=== PATIENT | female | born 1980 | race Caucasian/White ===

== ENCOUNTER 2019-07-07 13:30 | Outpatient (CLI) | payer OTHER, MEDICARE, BC | END 2019-07-07 13:31 | disposition home or self-care (01) | LOC: CTENTCT 13:30 | PROVIDERS: ATTEND Otolaryngology Plastic Surgery within the Head & Neck | DX: J32.8 Other chronic sinusitis (principal) | CPT/HCPCS: 70486 ==

== ENCOUNTER 2019-08-24 13:39 | Outpatient (CLI) | payer OTHER, MEDICARE, BC ==
--- NOTE | 2019-08-24 14:58 | ULT ---
Renal ultrasound: 08/24/2019 COMPARISON:None available HISTORY:Neurogenic bladder TECHNIQUE: Multiplanar grayscale sonographic imaging of the kidneys and urinary bladder obtained. FINDINGS: The right kidney measures9.8 x 6.1 x 5.4 cm and demonstratesno renal mass, hydronephrosis, or renal stone. The left kidney olitusec90.2 x 5.6 x 4.6 cm and demonstratesno hydronephrosis, stone, or mass lesion. The urinary bladderappears grossly unremarkable. IMPRESSION:No acute findings.
== END 2019-08-24 13:40 | disposition home or self-care (01) ==
LOC: BICULT 13:39
PROVIDERS: ATTEND Urology
DX: N31.9 Neuromuscular dysfunction of bladder, unspecified (principal)
CPT/HCPCS: 76770

== ENCOUNTER 2019-10-31 06:19 | Outpatient (CLI) | payer OTHER, MEDICARE, BC ==
[2019-10-31 12:32] LABS: Hemoglobin 13.6 g/dL (12.0-16.0); Mean Corpuscular HGB CONC 32.9 g/dL (32.0-36.0); Mean Corpuscular Hemoglobin 32.7 pg (27.0-31.0); Mean Corpuscular Volume 99.5 fL (78.0-98.0); Mean Platelet Volume 8.8 fL (7.4-10.4); Platelet Count 269 thou/uL (130-400); Red Blood Cell (RBC) Count 4.15 mill/uL (4.20-5.40); White Blood Cell (WBC) Count 9.3 thou/uL (4.8-10.8)
[2019-10-31 12:46] LABS: INR-International Normal Ratio 0.9; PTT 28.8 SEC (22.9-36.1); Prothrombin Time 12.5 sec (12.0-14.7)
[2019-10-31 12:50] LABS: Bacteria/HPF None Seen HPF (None Seen); Bilirubin Negative (Negative); Blood, Urine Negative (Negative); Clarity Clear (Clear); Glucose, Urine (Dipstick) Normal (Negative); Leukocyte Negative Leu/uL (Negative); Nitrite Negative (Negative); Protein, Urine (Dipstick) Negative (Neg-Trace); RBC/HPF 0-3 HPF (0-3); Squamous Epithelial 0-3 HPF (0-3); Urobilinogen Normal mg/dL (Less than 2); WBC/HPF 0-3 HPF (0-3)
[2019-10-31 12:57] LABS: Anion Gap 16 mmol/L (10-20); BUN (Urea Nitrogen) 16 mg/dL (7.0-18.7); Calc. Creatinine Clearance 0 mL/min (70-130); Calcium 9.3 mg/dL (7.8-10.44); Carbon Dioxide 21 mmol/L (22-29); Chloride 104 mmol/L (98-107); Estimated GFR-MDRD 85; Glucose 81 mg/dL (70-105); Potassium 3.9 mmol/L (3.5-5.1); Sodium 137 mmol/L (136-145)
[2019-10-31 17:38] LABS: SARS-CoV-2 MS2 Positive; SARS-CoV-2 N Gene Negative; SARS-CoV-2 S Gene Negative; SARS-CoV-2 orf1ab Negative
--- NOTE | 2019-10-31 21:11 | EKG ---
Test Reason : Blood Pressure : / mmHG Vent. Rate : 070 BPM Atrial Rate : 070 BPM P-R Int : 144 ms QRS Dur : 076 ms QT Int : 374 ms P-R-T Axes : 079 073 000 degrees QTc Int : 403 ms Normal sinus rhythm Nonspecific T wave abnormality Abnormal ECG No previous ECGs available Confirmed by Zenaida CAGLE ([id number]) on 10/31/2019 9:11:47 PM Referred By: ELDA Confirmed By:Zenaida CAGLE
== END 2019-10-31 06:20 | disposition home or self-care (01) ==
LOC: LABBT 06:19
PROVIDERS: ATTEND Urology
DX: Z01.818 Encounter for other preprocedural examination (principal); Z11.59 Encounter for screening for other viral diseases; N39.41 Urge incontinence; N32.81 Overactive bladder; E88.81 Metabolic syndrome and other insulin resistance; Q06.8 Other specified congenital malformations of spinal cord; E28.2 Polycystic ovarian syndrome; G90.522 Complex regional pain syndrome I of left lower limb; G90.50 Complex regional pain syndrome I, unspecified; Q05.9 Spina bifida, unspecified; K59.09 Other constipation; N31.9 Neuromuscular dysfunction of bladder, unspecified; N39.0 Urinary tract infection, site not specified; Z78.9 Other specified health status
CPT/HCPCS: 80048; 81001; 85027; 85610; 85730; 87086; 87635; 93005; 93010; U0003

== ENCOUNTER 2019-11-03 05:53 | Day surgery (SDC) | payer OTHER, MEDICARE, BC ==
[2019-10-31 09:41] VITALS: BMI 35.9
[2019-11-03] MEDS ORDERED: Levofloxacin 500 mg/D5W 100 ml Premix Bag ONE (06:38)
[2019-11-03] MEDS ORDERED: Fentanyl 100 MCG/2 ML VIAL ONE (07:08)
[2019-11-03] MEDS ORDERED: Sodium Chloride 0.9% 20 ML ONE (07:18)
[2019-11-03] MEDS ORDERED: Midazolam HCl 2 mg/2 ml Vial ONE (07:30)
[2019-11-03] MEDS ORDERED: HYDROmorphone 2 MG/ML VIAL ONE (08:42)
[2019-11-03] MEDS ORDERED: Sodium Chloride 0.9% 10 ML ONE ×2 (09:57)
--- NOTE | 2019-11-03 12:46 | OP ---
DATE OF PROCEDURE: 11/03/2019 SERVICE: Urology. PREOPERATIVE DIAGNOSIS: Neurogenic bladder with urge incontinence. POSTOPERATIVE DIAGNOSIS: Neurogenic bladder with urge incontinence. PROCEDURE PERFORMED: Cystoscopy with Botox 200 units. INDICATION FOR PROCEDURE: Ms. Wise is a 39-year-old white female with spina bifida, who has a neurogenic bladder. She performs self-catheterizations about 5 times per day. She does have urge incontinence between catheterizations, which previously has been well controlled on Botox 200 units. She is currently on Myrbetriq as she has not had any Botox, which she states is working quite well, but not completely controlling her symptoms. She would still like to have the Botox performed. Risks and benefits have been discussed and she has agreed to proceed forward. DESCRIPTION OF PROCEDURE: After identification of armband and verification of consent, the patient was brought back to the operating room, where she underwent general anesthesia with an LMA. She was then placed in dorsal lithotomy position and prepped and draped in usual sterile fashion. After appropriate time-out, a lubricated 22-Romanian rigid cystoscope was introduced per urethra into the bladder. A full cystoscopy was performed, which showed a normal-looking bladder with orthotopic locations of the ureters. No masses, lesions, stones, trabeculations or diverticular cellules noted. The Botox injector needle was brought in, and using a needle depth of 4 mm, 10 injections were performed throughout the posterior and lateral bladder golden for a total of approximately 200 units of Botox instilled. The 11th injection was done at the trigone. Upon completion, the areas of bleeding were noted to be minimal. The cystoscope was used to drain the bladder and then the cystoscope removed. The patient was then taken out of positioning, awakened, and taken to PACU for recovery in stable condition. COMPLICATIONS: None. ESTIMATED BLOOD LOSS: Minimal. RETAINED TUBES AND DRAINS: None. SPECIMENS: None. DISPOSITION: The patient will be discharged home and followed up with me in approximately 4 weeks for followup. Job ID: [id number]
[2019-11-03] MEDS ORDERED: PROPOFOL 200 MG/20 ML VIAL ONE (13:26)
[2019-11-03] MEDS ORDERED: Lidocaine 1% PF 5 ML VIAL ONE (13:26)
== END 2019-11-03 10:30 | disposition home or self-care (01) ==
LOC: SDC 05:53
PROVIDERS: ATTEND Urology
PROC: 3E0K8GC Introduction of Other Therapeutic Substance into Genitourinary Tract, Via Natural or Artificial Opening Endoscopic (ICD-10-PCS; principal; 2019-11-03)
DX: N31.9 Neuromuscular dysfunction of bladder, unspecified (principal); N39.41 Urge incontinence; N32.81 Overactive bladder; Q05.9 Spina bifida, unspecified; F41.9 Anxiety disorder, unspecified; K21.9 Gastro-esophageal reflux disease without esophagitis; G47.33 Obstructive sleep apnea (adult) (pediatric); G47.00 Insomnia, unspecified; Z79.899 Other long term (current) drug therapy; Z91.010 Allergy to peanuts; Z91.011 Allergy to milk products; Z91.018 Allergy to other foods; Z91.040 Latex allergy status
CPT/HCPCS: J0585; J1170; J1642; J1956; J2001; J2250; J2704; J3010

== ENCOUNTER 2019-11-12 19:30 | Outpatient (CLI) | payer BC, OTHER, MEDICARE | END 2019-11-12 19:31 | disposition home or self-care (01) | LOC: SLEEPLAB 19:30 | PROVIDERS: ATTEND Family Medicine | DX: G47.33 Obstructive sleep apnea (adult) (pediatric) (principal); R53.83 Other fatigue; R51 Headache; E66.9 Obesity, unspecified; R06.83 Snoring; F41.8 Other specified anxiety disorders | CPT/HCPCS: 95811 ==

== ENCOUNTER 2020-04-03 14:37 | Outpatient (CLI) | payer MEDICARE, OTHER | END 2020-04-03 14:38 | disposition home or self-care (01) | LOC: DTY/OP 14:37 | PROVIDERS: ATTEND Surgery | DX: E66.01 Morbid (severe) obesity due to excess calories (principal); I10 Essential (primary) hypertension | CPT/HCPCS: 97802 ==

== ENCOUNTER 2020-04-10 12:25 | Outpatient (CLI) | payer OTHER | END 2020-04-10 12:26 | disposition home or self-care (01) | LOC: DTY/OP 12:25 | PROVIDERS: ATTEND Surgery | DX: E66.01 Morbid (severe) obesity due to excess calories (principal); I10 Essential (primary) hypertension | CPT/HCPCS: 97802 ==

== ENCOUNTER 2020-04-20 10:43 | Outpatient (CLI) | payer OTHER | END 2020-04-20 10:44 | disposition home or self-care (01) | LOC: DTY/OP 10:43 | PROVIDERS: ATTEND Surgery | DX: E66.01 Morbid (severe) obesity due to excess calories (principal); I10 Essential (primary) hypertension | CPT/HCPCS: 97802 ==

== ENCOUNTER 2020-04-23 08:37 | Outpatient (CLI) | payer OTHER | END 2020-04-23 08:38 | disposition home or self-care (01) | LOC: DTY/OP 08:37 | PROVIDERS: ATTEND Surgery | DX: E66.01 Morbid (severe) obesity due to excess calories (principal); I10 Essential (primary) hypertension | CPT/HCPCS: 97802 ==

== ENCOUNTER 2020-05-02 10:25 | Outpatient (CLI) | payer OTHER | END 2020-05-02 10:26 | disposition home or self-care (01) | LOC: DTY/OP 10:25 | PROVIDERS: ATTEND Surgery | DX: E66.01 Morbid (severe) obesity due to excess calories (principal); I10 Essential (primary) hypertension | CPT/HCPCS: 97802 ==

== ENCOUNTER 2020-05-04 10:47 | Outpatient (CLI) | payer OTHER | END 2020-05-04 10:48 | disposition home or self-care (01) | LOC: DTY/OP 10:47 | PROVIDERS: ATTEND Surgery | DX: E66.01 Morbid (severe) obesity due to excess calories (principal); I10 Essential (primary) hypertension | CPT/HCPCS: 97802 ==

== ENCOUNTER 2020-05-09 10:42 | Outpatient (CLI) | payer OTHER | END 2020-05-09 10:43 | disposition home or self-care (01) | LOC: DTY/OP 10:42 | PROVIDERS: ATTEND Surgery | DX: E66.01 Morbid (severe) obesity due to excess calories (principal); I10 Essential (primary) hypertension | CPT/HCPCS: 97802 ==

== ENCOUNTER 2020-05-14 10:39 | Outpatient (CLI) | payer OTHER | END 2020-05-14 10:40 | disposition home or self-care (01) | LOC: DTY/OP 10:39 | PROVIDERS: ATTEND Surgery | DX: E66.01 Morbid (severe) obesity due to excess calories (principal); I10 Essential (primary) hypertension | CPT/HCPCS: 97802 ==

== ENCOUNTER 2020-05-18 09:40 | Outpatient (CLI) | payer OTHER | END 2020-05-18 09:41 | disposition home or self-care (01) | LOC: DTY/OP 09:40 | PROVIDERS: ATTEND Surgery | DX: E66.01 Morbid (severe) obesity due to excess calories (principal); I10 Essential (primary) hypertension | CPT/HCPCS: 97802 ==

== ENCOUNTER 2020-05-21 09:49 | Outpatient (CLI) | payer OTHER | END 2020-05-21 09:50 | disposition home or self-care (01) | LOC: DTY/OP 09:49 | PROVIDERS: ATTEND Surgery | DX: E66.01 Morbid (severe) obesity due to excess calories (principal); I10 Essential (primary) hypertension | CPT/HCPCS: 97802 ==

== ENCOUNTER 2020-05-24 12:48 | Outpatient (CLI) | payer OTHER | END 2020-05-24 12:49 | disposition home or self-care (01) | LOC: DTY/OP 12:48 | PROVIDERS: ATTEND Surgery | DX: E66.01 Morbid (severe) obesity due to excess calories (principal); I10 Essential (primary) hypertension | CPT/HCPCS: 97802 ==

== ENCOUNTER 2020-05-28 09:36 | Outpatient (CLI) | payer OTHER | END 2020-05-28 09:37 | disposition home or self-care (01) | LOC: DTY/OP 09:36 | PROVIDERS: ATTEND Surgery | DX: E66.01 Morbid (severe) obesity due to excess calories (principal); I10 Essential (primary) hypertension | CPT/HCPCS: 97802 ==

== ENCOUNTER 2020-07-25 10:15 | Inpatient (IN) | payer OTHER, MEDICARE, BC ==
[2020-07-27 12:44] VITALS: BMI 38.0
[2020-08-16] MEDS ORDERED: Ondansetron PF 4 MG/2 ML Vial ONE (10:02)
[2020-08-16] MEDS ORDERED: Metoclopramide HCl 10 MG/2 ML VIAL ONE (10:02)
[2020-08-16] MEDS ORDERED: Rocuronium Bromide 10 MG/ML (10ML VIAL) ONE (10:02)
[2020-08-16] MEDS ORDERED: PROPOFOL 200 MG/20 ML VIAL ONE (10:02)
[2020-08-16] MEDS ORDERED: Glycopyrrolate 0.2 MG/ML 5 ML SYRINGE ONE (10:02)
[2020-08-16] MEDS ORDERED: Lidocaine 1% PF 5 ML VIAL ONE (10:02)
[2020-08-16] MEDS ORDERED: Dexamethasone 20 MG/5 ML VIAL ONE (10:02)
[2020-08-16] MEDS ORDERED: PHENYLEPHRINE-NS 100 MCG/ML 10 ML SYRINGE ONE (10:02)
[2020-08-16] MEDS ORDERED: Scopolamine 1.5 mg/72 hour Patch ONE (11:23)
[2020-08-16] MEDS ORDERED: Enoxaparin Sodium 40 MG/0.4 ML SYRINGE ONE (11:24)
[2020-08-16] MEDS ORDERED: cefOXitin Sodium/Dextrose 2 GM/50 ML BAG ONE ×2 (11:30→18:46)
[2020-08-16] MEDS ORDERED: Sodium Chloride 0.9% 10 ML ONE (11:46)
[2020-08-16] MEDS ORDERED: Fentanyl 100 MCG/2 ML VIAL ONE ×3 (15:58→20:25)
[2020-08-16] MEDS ORDERED: Bupivacaine 0.25% HCL 30 ML VIAL ONE (16:01)
[2020-08-16] MEDS ORDERED: EPINEPHrine 1 MG/ML AMP ONE (16:01)
[2020-08-16] MEDS ORDERED: Midazolam HCl 2 mg/2 ml Vial ONE (16:13)
[2020-08-16] MEDS ORDERED: Dexmedetomidine 200 MCG/2 ML VIAL ONE (16:14)
[2020-08-16] MEDS ORDERED: SUGAMMADEX SODIUM 200 MG/2 ML VIAL ONE (20:02)
[2020-08-16] MEDS ORDERED: Promethazine HCl 25 MG/ML VIAL ONE (20:13)
[2020-08-16] MEDS ORDERED: PACU-Morphine 4MG/ML VIAL SLOW IVP PRN (20:15)
[2020-08-16] MEDS ORDERED: Promethazine HCl 25 MG/ML VIAL IM PRN ×4 (20:15→20:25)
[2020-08-16] MEDS ORDERED: Ondansetron HCl/PF 4 MG/2 ML Vial IVP PRN ×2 (20:15→20:24)
[2020-08-16] MEDS ORDERED: Promethazine HCl 25 MG/ML VIAL SLOW IVP PRN ×2 (20:15→20:24)
[2020-08-16] MEDS ORDERED: hydrALAZINE 20 MG/ML VIAL SLOW IVP PRN (20:23)
[2020-08-16] MEDS ORDERED: Ondansetron PF 4 MG/2 ML Vial IVP PRN ×2 (20:23→20:25)
[2020-08-16] MEDS ORDERED: diphenhydrAMINE 50 MG/ML VIAL IVP PRN ×2 (20:23→20:25)
[2020-08-16] MEDS ORDERED: Morphine 4 MG/ML VIAL SLOW IVP PRN (20:23)
[2020-08-16] MEDS ORDERED: Dextrose 5% in Water 1,000 ML IV PRN (20:23)
[2020-08-16] MEDS ORDERED: HumaLOG 300 UNITS/3 ML VIAL SC PRN (20:23)
[2020-08-16] MEDS ORDERED: Dextrose 50% Abboject 50 ML SYRINGE SLOW IVP PRN (20:23)
[2020-08-16] MEDS ORDERED: HYDROmorphone 2 MG/ML VIAL SLOW IVP PRN (20:24)
[2020-08-16] MEDS ORDERED: Naloxone HCl 0.4 mg/ml Vial IV PRN (20:25)
[2020-08-16] MEDS ORDERED: diphenhydrAMINE 50 MG/ML VIAL IM PRN (20:25)
[2020-08-16] MEDS ORDERED: diphenhydrAMINE 25 MG CAP PO PRN (20:25)
[2020-08-16] MEDS ORDERED: fentaNYL Citrate/PF 2,000 MCG in Sodium Chloride 0.9% 60 ML IV PRN (20:25)
[2020-08-16] MEDS ORDERED: Zolpidem Tartrate 5 MG TAB PO PRN (20:25)
[2020-08-16] MEDS ORDERED: HYDROmorphone 0.5 MG/0.5 ML SYRINGE ONE (20:25)
[2020-08-16] MEDS ORDERED: Communication Order-Pharmacy FS SCH (20:30)
[2020-08-16] MEDS: DULoxetine 60 MG CAP PO SCH (22:12)
[2020-08-16] MEDS: D5 1/2 NS w/20 mEq KCL 1,000 ML IV SCH (22:12)
[2020-08-16] MEDS ORDERED: Baclofen 10 MG TAB PO SCH (23:00)
[2020-08-16] MEDS: Ketorolac Tromethamine 30 MG/ML VIAL IVP SCH (23:10)
[2020-08-17] MEDS: Ketorolac Tromethamine 30 MG/ML VIAL IVP SCH ×4 (05:40→23:49)
[2020-08-17 06:03] LABS: #Monocytes 0.6 thou/uL (0.11-0.59); #Neutrophils 9.3 thou/uL (1.40-6.50); %Basophils 0.1 % (0.0-1.0); %Eosinophils 0.1 % (0.0-10.0); %Lymphocytes 9.4 % (21.0-51.0); %Neutrophils 85.4 % (42.0-75.0); Hemoglobin 11.5 g/dL (12.0-16.0); Mean Corpuscular HGB CONC 33.5 g/dL (32.0-36.0); Mean Corpuscular Hemoglobin 32.3 pg (27.0-31.0); Mean Corpuscular Volume 96.5 fL (78.0-98.0); Mean Platelet Volume 8.3 fL (7.4-10.4); Platelet Count 275 thou/uL (130-400); RBC Distribution Width 11.7 % (11.5-14.5); Red Blood Cell (RBC) Count 3.57 mill/uL (4.20-5.40); White Blood Cell (WBC) Count 10.9 thou/uL (4.8-10.8)
[2020-08-17 06:26] LABS: Anion Gap 12 mmol/L (10-20); BUN (Urea Nitrogen) 15 mg/dL (7.0-18.7); Calc. Creatinine Clearance 165 mL/min (70-130); Calcium 8.3 mg/dL (7.8-10.44); Carbon Dioxide 24 mmol/L (22-29); Chloride 105 mmol/L (98-107); Glucose 177 mg/dL (70-105); Sodium 137 mmol/L (136-145)
[2020-08-17] MEDS: D5 1/2 NS w/20 mEq KCL 1,000 ML IV SCH ×3 (06:37→22:05)
[2020-08-17] MEDS: Enoxaparin Sodium 40 MG/0.4 ML SYRINGE SC SCH (07:48)
[2020-08-17] MEDS: Pantoprazole 40 MG VIAL IVP SCH (07:48)
[2020-08-17] MEDS ORDERED: Morphine 2 MG/ML VIAL SLOW IVP PRN (10:42)
[2020-08-17] MEDS: Hydrocodone-Acetamin 15 ML UDCUP PO PRN ×3 (11:29→22:01)
[2020-08-17 11:46] LABS: #Lymphocytes 1.7 thou/uL (1.20-3.40); #Neutrophils 9.9 thou/uL (1.40-6.50); %Eosinophils 0.2 % (0.0-10.0); %Lymphocytes 13.1 % (21.0-51.0); %Monocytes 8.1 % (0.0-10.0); %Neutrophils 78.6 % (42.0-75.0); Hemoglobin 11.9 g/dL (12.0-16.0); Mean Corpuscular HGB CONC 33.6 g/dL (32.0-36.0); Mean Corpuscular Hemoglobin 32.8 pg (27.0-31.0); Mean Corpuscular Volume 97.4 fL (78.0-98.0); Mean Platelet Volume 8.4 fL (7.4-10.4); Platelet Count 305 thou/uL (130-400); RBC Distribution Width 11.7 % (11.5-14.5); Red Blood Cell (RBC) Count 3.62 mill/uL (4.20-5.40); White Blood Cell (WBC) Count 12.6 thou/uL (4.8-10.8)
[2020-08-17 12:18] LABS: Anion Gap 12 mmol/L (10-20); BUN (Urea Nitrogen) 12 mg/dL (7.0-18.7); Calc. Creatinine Clearance 160 mL/min (70-130); Calcium 8.4 mg/dL (7.8-10.44); Carbon Dioxide 23 mmol/L (22-29); Chloride 105 mmol/L (98-107); Glucose 123 mg/dL (70-105); Potassium 4.1 mmol/L (3.5-5.1); Sodium 136 mmol/L (136-145)
[2020-08-17] MEDS: DULoxetine 60 MG CAP PO SCH (20:14)
[2020-08-17] MEDS ORDERED: Zolpidem Tartrate 5 MG TAB PO PRN (20:37)
[2020-08-17] MEDS ORDERED: Baclofen 10 MG TAB PO SCH (21:00)
[2020-08-18] MEDS: Hydrocodone-Acetamin 15 ML UDCUP PO PRN ×2 (02:01→07:27)
[2020-08-18] MEDS: D5 1/2 NS w/20 mEq KCL 1,000 ML IV SCH (04:33)
[2020-08-18] MEDS: Ketorolac Tromethamine 30 MG/ML VIAL IVP SCH (06:01)
[2020-08-18 07:52] VITALS: BP 102/65; TEMP 98
[2020-08-18] MEDS: Enoxaparin Sodium 40 MG/0.4 ML SYRINGE SC SCH (09:17)
[2020-08-18] MEDS: Pantoprazole 40 MG VIAL IVP SCH (09:17)
== END 2020-08-18 10:36 | disposition home or self-care (01) | DRG 621 ==
LOC: EDSTATUS 07-31 10:15 → SURG A 08-16 10:42 → SJJU 08-16 21:46
PROVIDERS: ADMIT Surgery; ATTEND Surgery
PROC: 0D164ZA Bypass Stomach to Jejunum, Percutaneous Endoscopic Approach (ICD-10-PCS; principal; 2020-08-16)
PROC: 0DJ08ZZ Inspection of Upper Intestinal Tract, Via Natural or Artificial Opening Endoscopic (ICD-10-PCS; 2020-08-16)
DX: E66.01 Morbid (severe) obesity due to excess calories (principal); Z68.38 Body mass index [BMI] 38.0-38.9, adult; K31.84 Gastroparesis; I10 Essential (primary) hypertension; E28.2 Polycystic ovarian syndrome; Z20.822 Contact with and (suspected) exposure to COVID-19; Z88.8 Allergy status to other drugs, medicaments and biological substances; Z91.040 Latex allergy status; Z90.49 Acquired absence of other specified parts of digestive tract; Z79.899 Other long term (current) drug therapy
CPT/HCPCS: 80048; 85025; 94760; C9113; J0171; J0694; J1100; J1170; J1642; J1650; J1885; J2250; J2405; J2550; J2704; J2765; J3010; J3480; S0020

== ENCOUNTER 2020-08-09 11:37 | Outpatient (CLI) | payer OTHER, MEDICARE, BC ==
[2020-07-26 23:10] LABS: SARS-CoV-2 PCR by NAA Not Detected (NotDetected)
[2020-08-09 22:37] LABS: SARS-CoV-2 PCR by NAA Not Detected (NotDetected)
== END 2020-08-09 11:38 | disposition home or self-care (01) ==
LOC: LABBT 11:37
PROVIDERS: ATTEND Surgery
DX: K31.84 Gastroparesis (principal); Z20.822 Contact with and (suspected) exposure to COVID-19
CPT/HCPCS: 87635; U0003; U0005

== ENCOUNTER 2020-09-21 12:45 | Day surgery (SDC) | payer OTHER, MEDICARE, BC ==
[2020-09-21] MEDS ORDERED: Sodium Chloride 0.9% 20 ML ONE (12:51)
[2020-09-21] MEDS: Thiamine HCl 200 MG/2 ML VIAL SLOW IVP SCH ×2 (13:36→15:31)
[2020-09-21] MEDS: Folic Acid 1 MG, Multivitamins, Adult 10 ML in Dextrose 5 %-0.45 % NaCl 1,000 ML IV SCH ×2 (13:37→15:31)
[2020-09-21 14:10] VITALS: BP 142/67; TEMP 98.1
== END 2020-09-21 17:36 | disposition home or self-care (01) ==
LOC: ONC/OP 12:45
PROVIDERS: ATTEND Surgery
DX: E86.0 Dehydration (principal); Z91.010 Allergy to peanuts; Z91.011 Allergy to milk products; Z91.018 Allergy to other foods; Z91.040 Latex allergy status
CPT/HCPCS: 96365; 96366; J1642; J3411; J7042